=== PATIENT | male | born 1970 | race Caucasian/White ===

== ENCOUNTER → 2016-05-28 | Outpatient (CLI) | payer SELFPAY ==
[~2016-05-28] MED LIST: CLARITIN-D 24 H1 TER PO; DURICEF500 MG PO; MEDROL DOSEPAK4 MG PO; NKHM; PRILOSEC20 MG PO; TESSALON PERLE200 MG PO; ZITHROMAX250 MG PO
[2016-05-28 13:06] LABS: BASO % 0.5 % (0.0-1.0); EOS # 0.2 10*3/uL (0.0-0.4); EOS % 3.4 % (1.0-4.0); HEMATOCRIT 43.3 % (42.0-52.0); HEMOGLOBIN 14.3 g/dl (14.0-18.0); LYMPH # 1.7 10*3/uL (1.3-4.4); LYMPH % 29.6 % (27.0-41.0); MEAN CELL VOLUME 84.1 fl (80.0-94.0); MEAN CORPUSCULAR HGB 27.8 pg (27.0-31.0); MEAN PLATELET VOLUME 9.8 fl (9.6-12.3); MONO # 0.5 10*3/uL (0.1-1.0); NEUT # 3.4 10*3/uL (2.3-7.9); NEUT % 58.3 % (47.0-73.0); PLATELET COUNT AUTOMATED 272 10*3/uL (130-400); RED BLOOD COUNT 5.15 10*6/uL (4.50-5.90); RED CELL DISTRI WIDTH 12.7 % (0-14.5); WHITE BLOOD COUNT 5.8 10*3/uL (4.8-10.8)
[2016-05-28 13:33] LABS: HEMOGLOBIN A1c 5.6 % (4.8-5.6)
[2016-05-28 13:35] LABS: ALBUMIN 3.8 gm/dl (3.1-4.5); ALKALINE PHOSPHATASE 77 U/L (45-117); BILIRUBIN, TOTAL 0.5 mg/dl (0.2-1.0); BUN 12 mg/dl (7-24); CARBON DIOXIDE 26 mmol/L (21-32); CHLORIDE 109 mmol/L (98-107); CHOLESTEROL 178 mg/dL (<200); EST GLOM FILT AFRICAN AMERICAN > 60 ml/min; GLUCOSE 86 mg/dL (65-99); HDL CHOLESTEROL 42 mg/dl (40-60); LDL CHOLESTEROL 116 mg/dL (9-159); SGOT/AST 28 IU/L (3-35); SGPT/ALT 31 U/L (12-78); SODIUM 144 mmol/L (136-145); TOTAL PROTEIN 7.7 gm/dL (6.4-8.2); TRIGLYCERIDES 101 mg/dl (<150); VLDL CHOLESTEROL 20 mg/dL (6-40)
== END | disposition home or self-care (01) ==
LOC: LAB 12:45
PROVIDERS: Family Medicine
DX: R73.9 Hyperglycemia, unspecified (principal); R53.83 Other fatigue; R42 Dizziness and giddiness; E78.5 Hyperlipidemia, unspecified; E55.9 Vitamin D deficiency, unspecified

== ENCOUNTER 2016-06-04 21:58 | Inpatient (IN) | payer SELFPAY ==
[~2016-06-04] VITALS: Ht 177.8 cm; Wt 88.5 kg
[2016-06-04 22:04] VITALS: BP 136/82
[2016-06-04 22:25] VITALS: BP 136/83
[2016-06-04 22:44] VITALS: BP 136/79
[2016-06-04 22:49] LABS: BASO % 0.4 % (0.0-1.0); EOS # 0.2 10*3/uL (0.0-0.4); EOS % 2.2 % (1.0-4.0); HEMATOCRIT 38.8 % (42.0-52.0); HEMOGLOBIN 13.1 g/dl (14.0-18.0); LYMPH # 1.2 10*3/uL (1.3-4.4); LYMPH % 15.9 % (27.0-41.0); MEAN CELL VOLUME 84.2 fl (80.0-94.0); MEAN CORPUSCULAR HGB 28.4 pg (27.0-31.0); MEAN CORPUSCULAR HGB CONC 33.8 g/dl (33.0-37.0); MONO # 0.8 10*3/uL (0.1-1.0); MONO % 11.2 % (3.0-9.0); NEUT # 5.2 10*3/uL (2.3-7.9); NEUT % 69.9 % (47.0-73.0); PLATELET COUNT AUTOMATED 236 10*3/uL (130-400); RED BLOOD COUNT 4.61 10*6/uL (4.50-5.90); RED CELL DISTRI WIDTH 12.7 % (0-14.5); WHITE BLOOD COUNT 7.4 10*3/uL (4.8-10.8)
[2016-06-04 23:00] LABS: PROTHROMBIN TIME 10.6 SECONDS (9.0-12.4)
[2016-06-04 23:04] LABS: ALBUMIN 3.7 gm/dl (3.1-4.5); ALKALINE PHOSPHATASE 76 U/L (45-117); BILIRUBIN, TOTAL 0.5 mg/dl (0.2-1.0); BUN 16 mg/dl (7-24); CARBON DIOXIDE 26 mmol/L (21-32); CHLORIDE 105 mmol/L (98-107); EST GLOM FILT AFRICAN AMERICAN > 60 ml/min; GLUCOSE 87 mg/dL (65-99); POTASSIUM 3.8 mmol/L (3.5-5.1); SGOT/AST 20 IU/L (3-35); SGPT/ALT 22 U/L (12-78); SODIUM 143 mmol/L (136-145); TOTAL PROTEIN 7.2 gm/dL (6.4-8.2)
[2016-06-04 23:06] LABS: TROPONIN I < 0.015 ng/ml (<0.045)
[2016-06-04 23:17] VITALS: BP 134/84
[2016-06-04 23:54] VITALS: BP 135/79
[2016-06-05 02:15] VITALS: BP 116/68
[2016-06-05 06:05] LABS: BASO % 0.5 % (0.0-1.0); EOS # 0.1 10*3/uL (0.0-0.4); HEMATOCRIT 39.5 % (42.0-52.0); HEMOGLOBIN 12.8 g/dl (14.0-18.0); LYMPH # 1.4 10*3/uL (1.3-4.4); LYMPH % 23.4 % (27.0-41.0); MEAN CELL VOLUME 85.3 fl (80.0-94.0); MEAN CORPUSCULAR HGB 27.6 pg (27.0-31.0); MEAN CORPUSCULAR HGB CONC 32.4 g/dl (33.0-37.0); MONO # 0.8 10*3/uL (0.1-1.0); MONO % 13.1 % (3.0-9.0); NEUT # 3.7 10*3/uL (2.3-7.9); NEUT % 60.7 % (47.0-73.0); PLATELET COUNT AUTOMATED 216 10*3/uL (130-400); RED BLOOD COUNT 4.63 10*6/uL (4.50-5.90)
[2016-06-05 06:12] LABS: CPK 46 U/L (39-308)
[2016-06-05 06:16] LABS: TROPONIN I < 0.015 ng/ml (<0.045)
[2016-06-05 06:22] LABS: HEMOGLOBIN A1c 5.5 % (4.8-5.6)
[2016-06-05 06:28] LABS: BUN 18 mg/dl (7-24); CARBON DIOXIDE 27 mmol/L (21-32); CHLORIDE 109 mmol/L (98-107); CHOLESTEROL 161 mg/dL (<200); EST GLOM FILT AFRICAN AMERICAN > 60 ml/min; FREE T4 0.81 ng/dl (0.76-1.46); GLUCOSE 86 mg/dL (65-99); HDL CHOLESTEROL 34 mg/dl (40-60); LDL CHOLESTEROL 88 mg/dL (9-159); POTASSIUM 3.6 mmol/L (3.5-5.1); SODIUM 143 mmol/L (136-145); TRIGLYCERIDES 196 mg/dl (<150); VLDL CHOLESTEROL 39 mg/dL (6-40)
[2016-06-05 06:30] LABS: PROTHROMBIN TIME 10.7 SECONDS (9.0-12.4)
[2016-06-05 07:30] LABS: FOLIC ACID 6.39 ng/mL (>5.38); VITAMIN D, 25-HYDROXY 13.2 ng/mL (30-100)
[2016-06-05 08:00] VITALS: BP 120/70
[2016-06-05 12:00] VITALS: BP 119/80
[2016-06-05 12:18] LABS: CPK 49 U/L (39-308)
[2016-06-05 12:33] LABS: TROPONIN I < 0.015 ng/ml (<0.045)
[2016-06-05] MEDS ORDERED: AUGMENTIN 875875 MG PO (13:28)
[2016-06-05 16:00] VITALS: BP 126/73
== END 2016-06-05 17:21 | disposition home or self-care (01) | DRG 313 ==
LOC: ED 21:58 → EDHOLD 06-05 00:06 → 5E 06-05 00:26
PROVIDERS: Emergency Medicine Emergency Medical Services; Internal Medicine
DX: R07.89 Other chest pain (principal); N17.0 Acute kidney failure with tubular necrosis; J01.40 Acute pansinusitis, unspecified; D64.9 Anemia, unspecified